=== PATIENT | male | born 1990 | race Caucasian/White ===

== ENCOUNTER 2017-10-11 16:40 | Emergency (ER) | payer SELFPAY ==
[2017-10-11 16:45] VITALS: BP 156/115
[2017-10-11] MEDS ORDERED: fentaNYL 100 MCG/2 ML INJ IVP ONE (16:58)
--- NOTE | 2017-10-11 17:12 | EDPHY ---
General - History Smoking Status: Current some day smoker Time Seen by Provider: 10/11/17 17:05 Narrative: CHIEF COMPLAINT: Right shoulder dislocation HISTORY OF PRESENT ILLNESS: Patient presents with complaints of right shoulder pain and dislocation. He was trying to close his truck bed just prior to arrival with the when kicked back the other direction and feels that it "knocked my right shoulder out of socket."Severe pain when he attempts to move it. Moderate to severe at rest. Tingling in the right hand. No numbness. He has dislocated the same shoulder twice before without surgical intervention. He has no trauma elsewhere. No other associated complaints or modifying factors. Right-hand dominant ESTABLISHED ORTHOPEDIST: None locally. REVIEW OF SYSTEMS: Ten systems reviewed and are negative unless otherwise noted in the HPI PAST MEDICAL HISTORY: Shoulder dislocation but denies any other medical history PAST SURGICAL HISTORY: No surgical history SOCIAL HISTORY: Occasional tobacco use. Occasional marijuana and alcohol use. Originally from [place]. Moved here 2 years ago. FAMILY HISTORY: Noncontributory. EXAMINATION General Appearance: Alert, no distress Cardiovascular: Symmetric radial pulses 2+. Brisk cap refill on the right hand. Neurological: A&O, sensory symmetric, strength symmetric Skin: Warm and dry, no rash. No petechiae or purpura. No puncture laceration. No cyanosis or ecchymosis Extremities: Obvious step-off of the right shoulder with severe pain. Range of motion not tested due to suspected dislocation. Range of motion of the right wrist and fingers is symmetric to the left. Neurovascular intact distal to the shoulder injury Psychiatric: Mood and affect normal DIFFERENTIAL DIAGNOSES: Including but not limited to dislocation, subluxation, fracture, sprain, strain , slap injury MDM: 5:00 p.m. Right anterior dislocation of the shoulder. He is neurovascular intact with some paresthesia but no anesthesia. Hydrometer Tester strength intact. I have reviewed the x-ray at bedside. He is dislocated but do not appreciate any obvious fracture other than a Bankart lesion. I will administer intra-articular lidocaine, administer dose of fentanyl in attempt closed reduction. 5:12 p.m. Shoulder was successfully reduced without difficulty and without the need for procedural sedation. I have evaluated the x-ray and it shows successful reduction. There may be a Bankart lesion, the patient has had 3 dislocations. 5:20 p.m. We discussed weight-bearing restrictions, ice, anti-inflammatories and pain medication. We discussed the sling and removal of the arm for [id number] exercises. I stressed the importance of orthopedic follow-up given this is his 3rd dislocation. We discussed ED precautions. He verbalizes understanding of this and discharged home stable condition. PROCEDURE: Closed reduction of shoulder dislocation Consent: Verbal Location: Right Anesthesia: IV fentanyl x1. Intra-articular Marcaine, 0.5% without epinephrine. 8 mL. Procedure: After time-out and the above medications, I applied traction counter traction to the right upper extremity. Over period of 10 min I was able to relax and musculature of the shoulder girdle and successfully reduce the shoulder with minimal manipulation. This was tolerated well without difficulty. Complications: None Post-reduction film: Successful reduction SUPERVISION: This patient was independently evaluated without direct involvement of or examination by the attending physician. ED Precautions: Worsening pain. Erythema, edema, cyanosis, pallor, paresthesia or anesthesia. (Evangelista Tristan) Medical Decision Making: I did not see this patient while he was in the emergency department. However his care was discussed with the PA while the patient was in the department. I agree with treatment plan and management (Marcin Bernabe) - Diagnostics Imaging Results: Imaging Impressions Shoulder X-Ray 10/11/17 16:46 Impression: Anterior inferomedial dislocation of the humeral head relative to the glenoid. Portable Right Shoulder (2 views, at 5:20 PM): There has been closed reduction and anatomic realignment of the glenohumeral joint. Impression: The glenohumeral joint is now anatomically-aligned. Shoulder X-Ray 10/11/17 17:11 Impression: Anterior inferomedial dislocation of the humeral head relative to the glenoid. Portable Right Shoulder (2 views, at 5:20 PM): There has been closed reduction and anatomic realignment of the glenohumeral joint. Impression: The glenohumeral joint is now anatomically-aligned. - Objective Vital Signs: Initial Vital Signs Temperature (C) 37.3 C 10/11/17 16:43 Heart Rate 84 10/11/17 16:43 Respiratory Rate 16 10/11/17 16:43 Blood Pressure 156/115 H 10/11/17 16:43 O2 Sat (%) 94 10/11/17 16:43 O2 Delivery Mode Room Air Allergies/Adverse Reactions: No Known Allergies Allergy (Unverified 10/11/17 16:43) Home Medications: Medication Instructions Recorded oxyCODONE HCL/ACETAMINOPHEN 1 each PO Q4-6PRN PRN #7 tablet 10/11/17 [Percocet 5-325 mg Tablet] Medications Given: Discontinued Medications Fentanyl (Sublimaze) 100 mcg IVP EDNOW ONE Stop: 10/11/17 16:59 Last Admin: 10/11/17 17:05 Dose: 100 mcg Departure - Departure Disposition: Home, Routine, Self-Care Clinical Impression: Shoulder dislocation, recurrent Qualifiers: Laterality: right Qualified Code(s): M24.411 - Recurrent dislocation, right shoulder Condition: Good Instructions: Shoulder Dislocation (ED) Additional Instructions: 1. Ice and elevation 2. Ibuprofen [id number] 600 mg every 8 hr as needed for pain 3. Percocet as prescribed as needed for pain 4. Contact the on-call orthopedist as provided for outpatient follow-up 5. Weightbearing instructions as discussed. Do not elevate your arm above shoulder height Referrals: Yunior Bullock MD [Medical Doctor] - As per Instructions Prescriptions: oxyCODONE HCL/ACETAMINOPHEN [Percocet 5-325 mg Tablet] 1 each PO Q4-6PRN PRN #7 tablet PRN Reason: Pain, Breakthrough
== END 2017-10-11 17:35 | disposition home or self-care (01) ==
PROC: 0RSJXZZ Reposition Right Shoulder Joint, External Approach (ICD-10-PCS; principal; 2017-10-11)
DX: M24.411 Recurrent dislocation, right shoulder (principal); F17.200 Nicotine dependence, unspecified, uncomplicated; X50.0XXA Overexertion from strenuous movement or load, initial encounter
CPT/HCPCS: 96374; A4565; J3010